=== PATIENT | female | born 2000 | race African-American/Black ===

== ENCOUNTER 2025-09-30 16:04 | Emergency (ER) | payer SELFPAY ==
[2025-09-30 16:50] VITALS: BP 125/78; PULSE 75; RESP 16; TEMP 36.5; O2SAT 100
--- NOTE | 2025-09-30 17:44 | ED.FEMALEGU ---
HPI - Female Genitourinary General Chief complaint: Urogenital-Female Stated complaint: SOB / genital area discomfort Time Seen by Provider: 09/30/25 17:44 Source: patient and RN notes reviewed Mode of arrival: ambulatory Limitations: no limitations History of Present Illness HPI Narrative: 25 y/o female presented for c/o exposure to STD. Endorses new sexual partner x2 weeks, notified yesterday he tested positive for chlamydia. Patient has been tested for days ago, but is awaiting results from the clinic. Endorses pain to the periarea. Denies hematuria, nausea, vomiting, abdominal pain, flank pain, constipation, diarrhea, fevers or chills. Related Data Allergies Allergy/AdvReac Type Severity Reaction Status Date / Time No Known Allergies Allergy Verified 09/30/25 17:24 Review of Systems Review of Systems: CONSTITUTIONAL: Denies body aches, fever, chills, or sweats. CARDIOVASCULAR: Denies chest pain, palpitations, or edema. RESPIRATORY: Denies cough or dyspnea. GASTROINTESTINAL: Denies abdominal pain, nausea, vomiting, or diarrhea. GENITOURINARY: Reports dysuria, denies frequency, urgency, hematuria, flank pain, discharge SKIN: Denies rash, itching, or wounds. MUSCULOSKELETAL: Denies back pain or myalgia. PMFSH Comments At time of signature, I have reviewed and agree with nursing past medical, surgical, social and family history unless otherwise noted. Please see nursing chart for further information. There is no relevant family history pertinent to the presenting complaint Exam Narrative: GENERAL: Well-appearing and in no acute distress. ENT: Mucous membranes pink and moist. NECK: Normal AROM. Supple. CHEST: No respiratory distress. Clear to auscultation. HEART: Regular rate and rhythm. ABDOMEN: Soft, nontender, nondistended, normal active bowel sounds. No CVA tenderness SKIN: Warm, dry, no rash. NEURO: No focal deficits. Alert and oriented x3. Gait steady. PSYCH: Normal affect. Course Course Level of Care: Express Care Visit Vital Signs Vital signs: Vital Signs Temperature 97.7 F 09/30/25 16:50 Pulse Rate 75 09/30/25 16:50 Respiratory Rate 16 09/30/25 16:50 Blood Pressure 125/78 09/30/25 16:50 Pulse Oximetry 100 09/30/25 16:50 Temperature 97.7 F 09/30/25 16:50 Pulse Rate 75 09/30/25 16:50 Respiratory Rate 16 09/30/25 16:50 Blood Pressure 125/78 09/30/25 16:50 Pulse Oximetry 100 09/30/25 16:50 MDM MDM Narrative Medical decision making narrative: Patient presenting with concern for STD; exposure to chlamydia. Pt is currently awaiting STD results through outside clinic. Agreeable to treatment for chlamydia at this time. Also culture urine. I have instructed the patient to return to the ER at any time if there are any new or worsening symptoms. The patient expressed understanding of and agreement with this plan. Differential Diagnosis Differential Diagnosis: UTI, STD Discharge Plan Discharge Clinical Impression: Exposure to sexually transmitted disease (STD) Patient Disposition: Home Condition: Stable Instructions: Antibiotic Form, Chlamydia (ED) Additional Instructions: Your urine will be sent of for a culture to determine if bacteria is causing your symptoms. If the culture shows a UTI, you will be notified and an antibiotic will be called in for you. RX Doxycycline sent to your pharmacy to cover for chlamydia. If your test comes back positive you should need no further treatment (from the clinic). You will need to notify any partners that you have so they can be tested and treated. To avoid reinfection, you are advised to abstain from sexual intercourse for 7 days (and any symptoms have resolved) to prevent transmission. Recommend safe sex practices to avoid infection. If your tests come back negative and you are still experiencing symptoms, please follow-up with your PCP or Obgyn for further evaluation and treatment. If your symptoms worsen to include fever, abdominal pain, or back pain, please go to the hospital immediately. Patient Language: [place] Prescriptions: New doxycycline hyclate 100 mg tablet 100 mg PO BID 7 Days Qty: 14 0RF Follow-up/Referrals: PHYSICIAN,DEMO SPECIALIST [Primary Care Provider, Internal Medicine] Stand Alone Forms: Work/School Release IP Time of Disposition: 17:58
[2025-09-30 17:57] LABS: EDUAAPPEAR Cloudy; EDUABILI Negative (Negative); EDUABLOOD 3+ (Negative); EDUACOLOR1 Yellow; EDUAGLUCOSE Negative (Negative); EDUAKETONE 1+ (Negative); EDUALEUKO Trace (Negative); EDUANITRATE Negative (Negative); EDUAPH 6.0; EDUAPROTEIN 1+ (Negative); EDUASPGRAVITY 1.030; EDUAUROBILI 0.2
== END 2025-09-30 18:09 | disposition home or self-care (01) ==
PROVIDERS: Emergency Provider Nurse Practitioner Family
DX: Z20.2 Contact with and (suspected) exposure to infections with a predominantly sexual mode of transmission (principal)
CPT/HCPCS: 81003; 87086; 99203; G0463